=== PATIENT | male | born 1980 | race African-American/Black ===

== ENCOUNTER 2020-02-04 10:39 | Emergency (ER) | payer OTHER ==
[~2020-02-04] VITALS: Ht 177.8 cm; Wt 85.9 kg
[2020-02-04] MEDS ORDERED: QC A650T3 PO (10:53)
[2020-02-04] MEDS ORDERED: ACET650S3 PR (10:53)
[2020-02-04] MEDS ORDERED: MAXA10TA14 PO (10:53)
[2020-02-04 11:24] LABS: HEMATOCRIT 46.7 % (42.0-52.0); HEMOGLOBIN 15.9 g/dl (13.5-17.5); MEAN CORPUSCULAR HEMOGLOBIN 31.5 pg (27.0-33.0); MEAN CORPUSCULAR VOLUME 92.7 fl (80.0-96.0); PLATELET COUNT, AUTOMATED 201 10^3/uL (150-450); RED BLOOD COUNT 5.04 10^6/uL (4.30-6.10); WHITE BLOOD COUNT 10.6 10^3/uL (4.0-10.0)
[2020-02-04] MEDS ORDERED: CHARCOAL ACTIVATED LIQUID 25 GM/120 ML BTL PO ONE (11:45)
[2020-02-04] MEDS ORDERED: NS 1,000 ML IV ONE (11:45)
[2020-02-04 12:25] LABS: ACETAMINOPHEN LEVEL < 2.0 UG/ML (10.0-30.0); ALBUMIN 4.2 GM/DL (3.2-5.2); ALT/SGPT 19 U/L (12-78); BILIRUBIN,DIRECT 0.5 MG/DL (0.0-0.2); BLOOD UREA NITROGEN 9 MG/DL (7-18); CALCIUM LEVEL 9.7 MG/DL (8.5-10.1); CARBON DIOXIDE LEVEL 23 MEQ/L (21-32); CHLORIDE LEVEL 102 MEQ/L (98-107); CREATININE FOR GFR 1.04 MG/DL (0.70-1.30); ETHYL ALCOHOL (ETHANOL) 0.005 % (0.000-0.010); GLOMERULAR FILTRATION RATE > 60.0 (>60); GLUCOSE, FASTING 110 MG/DL (70-100); POTASSIUM SERUM 3.7 MEQ/L (3.5-5.1); SALICYLATE LEVEL < 1.7 MG/DL (5.0-30.0); SODIUM LEVEL 136 MEQ/L (136-145); TOTAL PROTEIN 7.7 GM/DL (6.4-8.2)
[2020-02-04 12:40] LABS: AMPHETAMINES LEVEL URINE NEGATIVE (NEGATIVE); BARBITURATES URINE NEGATIVE (NEGATIVE); BENZODIAZEPINES URINE NEGATIVE (NEGATIVE); CANNABINOIDS URINE NEGATIVE (NEGATIVE); COCAINE METABOLITE URINE NEGATIVE (NEGATIVE); METHADONE URINE NEGATIVE (NEGATIVE); OPIATES URINE NEGATIVE (NEGATIVE); PHENCYCLIDINE URINE NEGATIVE (NEGATIVE)
[2020-02-04 12:45] VITALS: BP 167/98
[2020-02-04] MEDS ORDERED: METOPROLOL TART 50 MG TAB PO ONE (12:45)
[2020-02-04] MEDS ORDERED: CHLORTHALIDONE 25 MG TAB PO ONE (14:15)
[2020-02-04] MEDS ORDERED: CHLORTHALIDONE 12.5MG PER 1/2 TABLET PO ONE (14:15)
[2020-02-04] MEDS ORDERED: PILL CUTTER 1 EACH XX ONE (14:35)
[2020-02-04] MEDS ORDERED: ACET-908 PO (17:36)
[2020-02-04] MEDS ORDERED: IBUP-1114 PO (17:36)
[2020-02-04] MEDS ORDERED: VALA1TAB5 PO (17:36)
[2020-02-04] MEDS ORDERED: INDE80CA10 PO (17:36)
[2020-02-05 00:18] VITALS: BP 129/91
--- NOTE | 2020-02-05 15:42 | ECGEPIP ---
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
== END 2020-02-05 00:20 ==
LOC: M ED 10:39
DX: T45.0X2A Poisoning by antiallergic and antiemetic drugs, intentional self-harm, initial encounter (principal); T51.0X2A Toxic effect of ethanol, intentional self-harm, initial encounter; R00.0 Tachycardia, unspecified; Y92.89 Other specified places as the place of occurrence of the external cause; F32.9 Major depressive disorder, single episode, unspecified; G43.909 Migraine, unspecified, not intractable, without status migrainosus; Z79.899 Other long term (current) drug therapy
CPT/HCPCS: 36415; 80048; 80076; 80307; 84443; 85027; 87486; 87581; 87633; 87798; 93005; 93041; 96360; 99285; G0480

== ENCOUNTER 2021-10-20 13:50 | Emergency (ER) | payer OTHER ==
[~2021-10-20] VITALS: Ht 177.8 cm; Wt 88.1 kg
[~2021-10-20 13:50] MED LIST: ACET-910 PO; ACET650S3 PR; IBUP-1114 PO; INDE80CA10 PO; MAXA10TA14 PO; QC A650T3 PO; VALA1TAB5 PO
[2021-10-20] MEDS ORDERED: VENL75TA2 PO (13:55)
[2021-10-20] MEDS ORDERED: TRAZ-252 PO (13:55)
[2021-10-20 17:14] LABS: APPEARANCE, URINE CLEAR (CLEAR); BACTERIA, URINE AUTO NEGATIVE (NEGATIVE); BILIRUBIN, URINE AUTO NEGATIVE (NEGATIVE); BLOOD, URINE BLOOD NEGATIVE (NEGATIVE); COLOR, URINE YELLOW (YELLOW); GLUCOSE, URINE (UA) AUTO NEGATIVE (NEGATIVE); KETONE, URINE AUTO NEGATIVE (NEGATIVE); LEUKOCYTE ESTERASE, URINE AUTO NEGATIVE (NEGATIVE); NITRITE, URINE AUTO NEGATIVE (NEGATIVE); PROTEIN, URINE AUTO NEGATIVE (NEGATIVE); RBC, URINE AUTO 1 /HPF (0-3); SPECIFIC GRAVITY URINE AUTO 1.018 (1.002-1.035); SQUAMOUS EPITHELIAL CELL UR AU 0 /HPF (0-6); UROBILINOGEN, URINE AUTO 0.2 mg/dL (0.0-2.0); WBC, URINE AUTO 0 /HPF (0-3)
[2021-10-20 18:18] VITALS: BP 129/72
== END 2021-10-20 18:23 | disposition home or self-care (01) ==
LOC: M ED 13:50
DX: K40.21 Bilateral inguinal hernia, without obstruction or gangrene, recurrent (principal); N52.9 Male erectile dysfunction, unspecified; N48.89 Other specified disorders of penis

== ENCOUNTER → 2021-11-14 | Outpatient (CLI) | payer OTHER ==
[~2021-11-14] MED LIST changes: +TRAZ-252 PO; +VENL75TA2 PO
== END ==
LOC: M LAB 14:01
PROVIDERS: ATTEND Physician Assistant
DX: Z12.5 Encounter for screening for malignant neoplasm of prostate (principal)
CPT/HCPCS: 36415; G0103